=== PATIENT | female | born 1975 | race African-American/Black ===

== ENCOUNTER 2017-01-14 11:23 | Emergency (ER) | payer BC ==
[~2017-01-14] VITALS: Ht 165.1 cm; Wt 136.1 kg
--- NOTE | ~2017-01-14 | EKG ---
[place] [address] 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
[2017-01-14 12:48] LABS: ABSOLUTE NEUTROPHILS 4.8 thou/uL (1.4-8.2); BASOPHILS 1.1 % (0.0-2.0); EOSINOPHILS 0.5 % (0.0-3.0); HEMATOCRIT 40.4 % (37.0-47.0); HEMOGLOBIN 13.4 gm/dL (12.0-15.0); LYMPHOCYTES 29.9 % (24.0-44.0); MCH 26.8 pg (26.0-34.0); MCHC 33.2 g/dL (28.0-37.0); MCV 80.9 fL (80.0-100.0); PLATELET COUNT 369 thou/uL (150-400); POLYS 60.5 % (36.0-66.0); RDW 19.5 % (10.5-14.5); WBC 7.9 thou/uL (4.0-11.0)
[2017-01-14 12:56] LABS: MANUAL DIFF NO
[2017-01-14 13:08] LABS: ANION GAP 6 mmol/L (7-16); BUN 10 mg/dL (7-18); CHLORIDE 103 mmol/L (98-107); CO2 28 mmol/L (21-32); CREATININE 0.8 mg/dL (0.6-1.0); GLUCOSE 100 mg/dL (74-106); POTASSIUM 3.8 mmol/L (3.5-5.1); SODIUM 137 mmol/L (136-145)
[2017-01-14 13:16] LABS: TROPONIN-I < 0.04 ng/mL (<0.04-0.07)
[2017-01-14 13:24] VITALS: BP 150/96
[2017-01-14] MEDS ORDERED: XANAX 0.25 MG0.25 MG PO (13:30)
== END 2017-01-14 13:32 | disposition home or self-care (01) ==
LOC: ER 11:23
PROVIDERS: Emergency Medicine
DX: R94.31 Abnormal electrocardiogram [ECG] [EKG] (principal); E66.01 Morbid (severe) obesity due to excess calories; Z68.42 Body mass index [BMI] 45.0-49.9, adult; Z88.5 Allergy status to narcotic agent

== ENCOUNTER 2017-06-11 16:18 | Observation (INO) | payer SELFPAY ==
[2017-06-11] VITALS (7 sets, daily range): BP systolic 122–143; BP diastolic 65–90
[~2017-06-11] VITALS: Ht 160 cm; Wt 111.1 kg
--- NOTE | ~2017-06-11 | D ---
[facility] [place] [address] DISCHARGE SUMMARY Name: CORINNE GREGORY Room #: 447-P [facility]#: [id number] Admission: 06/11/17 Attend Phys: Domingo Rivera MD Discharge: 06/12/17 Date of : 77 Report #: [id number] THIS REPORT FOR: //name// CC: MARCOS physician/PCP Domingo Rivera DATE OF SERVICE: 06/12/2017 HISTORY OF PRESENT ILLNESS: The patient is a 41-year-old female with history of menorrhagia, iron deficiency anemia, with gastric bypass surgery in December 2016. The patient successfully lost 70 pounds. The patient was seen in outpatient clinic, and she was found to have hemoglobin of 6.8, with low MCV of 70. She was admitted here for further treatment. The patient also complained of weakness and dizziness. Please refer to the admission H and P for details. HOSPITALIZATION COURSE: The patient was hospitalized. She received 1 unit of the PRBC. Her hemoglobin is 7.4 this morning. She feels much better. Given the patient's gastric bypass surgery and possible malabsorption, the patient was given IV iron supplementation, Venofer 100 mg times 1. She is advised to talk to primary care physician and [facility] doctor for further infusion as necessary. The patient states that her iron pills are too big, and she cannot swallow them. We will prescribe liquid iron sulfate elixir, 5 mL t.i.d. The patient will be discharged home on close outpatient followup after Venofer infusion is finished. DISCHARGE DIAGNOSES: 1. Symptomatic iron deficiency anemia, much better after blood transfusion. Currently, hemoglobin is 7.4, from 6.8 on admission. 2. Iron deficiency anemia due to chronic menorrhagia, in combination of possible malabsorption after gastric bypass surgery. 3. Urinary tract infection. Empiric Vantin. 4. Status post gastric sleeve surgery in December 2016, successful loss of 70 pounds. 5. Uterine fibroids. 6. Obesity. 7. Hypertension. DISCHARGE MEDICATIONS: Same as outpatient medications, please refer to admission H and P. As noted, iron sulfate is changed to iron sulfate elixir 5 mL t.i.d. DISPOSITION: The patient is discharged home. [address] [address] DISCHARGE SUMMARY Name: CORINNE GREGORY Room #: 447-P [facility]#: [id number] Admission: 06/11/17 Attend Phys: Domingo Rivera MD Discharge: 06/12/17 Date of : 77 Report #: [id number] FOLLOWUP PLAN: Follow up with [facility] doctor and primary care physician in 1 week. <ELECTRONICALLY SIGNED> By: Domingo Rivera MD 06/16/17 [id number] Domingo Rivera MD /nt
[~2017-06-11 16:18] MED LIST: XANAX 0.25 MG0.25 MG PO
[2017-06-11 16:56] LABS: URINE BLOOD 2+ (Negative); URINE CLARITY CLEAR; URINE COLOR YELLOW; URINE GLUCOSE-RANDOM* NEGATIVE (Negative); URINE KETONES TRACE (Negative); URINE LEUKOCYTES NEGATIVE (Negative); URINE NITRITE NEGATIVE (Negative); URINE PROTEIN (DIPSTICK) TRACE (Negative); URINE SPECIFIC GRAVITY >= 1.030 (1.005-1.035)
[2017-06-11 16:58] LABS: ICTOTEST (BILI CONFIRMATORY) Negative (Negative); URINE BILIRUBIN NEGATIVE (Negative)
[2017-06-11] MEDS ORDERED: NORVASC5 MG PO (17:01)
[2017-06-11] MEDS ORDERED: HYDROCHLOROTH12.5 M1 PO (17:02)
[2017-06-11] MEDS ORDERED: PROGESTERONE100 MG PO (17:02)
[2017-06-11 17:03] LABS: SQUAMOUS >10 Many /LPF (0-3)
[2017-06-11 17:05] LABS: BACTERIA >30 Many /HPF (None Seen); CASTS None Seen /LPF (None Seen); MUCUS >6 Heavy strn/LPF (None Seen); URINE RBC 3-10 Few /HPF (0-2); URINE WBC 6-15 Few /HPF (0-5)
[2017-06-11 17:06] LABS: CRYSTALS None Seen /LPF (None Seen)
[2017-06-11 17:10] LABS: HEMATOCRIT 21.9 % (37.0-47.0); HEMOGLOBIN 6.8 gm/dL (12.0-15.0); MCH 20.8 pg (26.0-34.0); MCHC 31.1 g/dL (28.0-37.0); MCV 66.8 fL (80.0-100.0); PLATELET COUNT 156 thou/uL (150-400); RBC 3.28 mil/uL (4.20-5.00); RDW 17.9 % (10.5-14.5); WBC 12.3 thou/uL (4.0-11.0)
[2017-06-11 17:12] LABS: CALCIUM 8.9 mg/dL (8.5-10.1); CREATININE 0.9 mg/dL (0.6-1.0); POTASSIUM 3.7 mmol/L (3.5-5.1)
[2017-06-11 17:20] LABS: ALBUMIN 3.3 g/dL (3.4-5.0); TOTAL BILIRUBIN 0.5 mg/dL (<0.1-1.0); TOTAL PROTEIN 7.6 g/dL (6.4-8.2)
[2017-06-11 17:40] LABS: ABSOLUTE NEUTROPHILS 8.5 thou/uL (1.4-8.2); ANISOCYTOSIS 3+; HYPOCHROMASIA 2+; MACROCYTES 1+; MICROCYTES 1+; POLYCHROMASIA SLIGHT; SCHISTOCYTES 2+
[2017-06-12 00:46] VITALS: BP 122/86
[2017-06-12 01:05] VITALS: BP 126/70; BP 132/70
[2017-06-12 01:20] VITALS: BP 126/70
[2017-06-12 03:35] VITALS: BP 132/70
[2017-06-12 07:01] LABS: HEMATOCRIT 23.6 % (37.0-47.0); HEMOGLOBIN 7.5 gm/dL (12.0-15.0); MCH 22.5 pg (26.0-34.0); MCHC 31.7 g/dL (28.0-37.0); MCV 70.8 fL (80.0-100.0); RBC 3.33 mil/uL (4.20-5.00); RDW 18.9 % (10.5-14.5); WBC 8.1 thou/uL (4.0-11.0)
[2017-06-12 07:08] LABS: CALCIUM 8.1 mg/dL (8.5-10.1); CREATININE 0.6 mg/dL (0.6-1.0); POTASSIUM 3.5 mmol/L (3.5-5.1)
[2017-06-12 07:42] VITALS: BP 116/68
[2017-06-12] MEDS ORDERED: FERROUS SU220 MG/52 PO (11:08)
[2017-06-12 13:07] VITALS: BP 116/68
== END 2017-06-12 16:05 | disposition home or self-care (01) ==
LOC: ER 16:18 → 4S 18:47 → EROBS 18:47 → 4S 19:25
PROVIDERS: Nurse Practitioner Family; Physician Assistant
DX: D50.9 Iron deficiency anemia, unspecified (principal); D25.9 Leiomyoma of uterus, unspecified; N92.0 Excessive and frequent menstruation with regular cycle; I10 Essential (primary) hypertension; N39.0 Urinary tract infection, site not specified; K21.9 Gastro-esophageal reflux disease without esophagitis; E66.9 Obesity, unspecified; Z98.84 Bariatric surgery status